=== PATIENT | male | born 1995 | race Caucasian/White ===

== ENCOUNTER 2018-05-25 08:44 | Outpatient (CLI) | payer OTHER ==
--- NOTE | 2018-05-25 10:08 | NUR ---
0855-arrived to room 2509 with guards x 2. 0915-Kaye Little RN here for PICC. Should be done in IR. Maite Boss RN notified. It will be after 1400. 0930-Guards notified will contact Unit. 0945-Residential says to cancel and reschedule. 954-d/c with guards.
== END 2018-05-25 09:55 | disposition home or self-care (01) ==
LOC: D.OPS 08:44
DX: D66 Hereditary factor VIII deficiency (principal); Z53.8 Procedure and treatment not carried out for other reasons